=== PATIENT | male | born 1960 | race Caucasian/White ===

== ENCOUNTER 2023-06-30 09:46 | Outpatient (AMB) | payer OTHER, SELFPAY ==
--- NOTE | 2023-06-30 10:08 | AM.OFFWIN_ITS ---
Intake Vital Signs 06/30/23 10:13 Height 5 ft 9 in Weight 172 lb 4 oz BMI 25.4 BP 106/70 Blood Pressure Location Rt brachial Position Sitting Respiration 16 Pulse 92 Pulse Source Pulse Oximeter Temp 98.3 F Temp Source Oral Pulse Oximetry (%) 98 Oxygen Delivery Method Room Air Intake Visit Reasons: Headache,stomach ache Intake Note: Headache, stomach ache, loss of appetite Patient Tobacco Use Status: Never used Tobacco [employer] Office Supervisor Required: No Allergies codeine Allergy (Unknown, Verified 06/30/23 10:09) unkown Medication List - Last Reconciled 06/30/23 by Liliana Talley PA-C clonazepam mg PO clotrimazole-betamethasone 1-0.05 % appl topical lisinopril 5 mg PO DAILY metformin ER 750 mg PO BID Do you need a note to return to daycare/school/sports/work: No HPI Headache,stomach ache HPI Details Patient is a 62-year-old male with a significant past medical history of autism, hypertension, hyperlipidemia, type 2 diabetes and anxiety with depression presenting today with complaints of feeling unwell. He follows with an external pcp at [facility] with Dr. Rizzo . He states that his symptoms started about a week ago with sinus congestion, postnasal drip, decreased appetite, intermittent nausea without vomiting and some increased urinary frequency. He does state that he gets seasonal allergies and has been taking Claritin intermittently but not recently. He states that his nose gets very stuffy at night and sometimes it makes his sinuses tender but they are not currently painful. He denies any ear pain, sore throat or swollen lymph nodes. He does intermittently get generalized abdominal discomfort but nothing current or painful. It is unclear if this is something that is on and off for years or more recent but he does not think he has had it recently. He denies any flank pain, dysuria or malodorous urine. He has been trying to drink more water to be healthy. He is accompanied today with his director of casework department, Casa, who helps provide some of the hx. He is following with the [facility]. He lives independently. He has [facility]NA who comes daily to administer meds and checks bs. His glucoses have been 120-130. His glucose yesterday was 123. His director of casework department wonders if some of these symptoms are related to his neighbor moving out of the facility. He states that they had a close relationship and that this has been stressful for Yasmany. Yasmany also was recently started on Trintellix about a month ago in decreased on another psych medication which they can not recall the name of. He did not have any difficulty starting the Trintellix and did not notice any nausea around the time of starting this. The nausea has only been on and off for the last week. No weight loss. Bung Remover states that he is overdue for basic labs and unable to see PCP until the middle of next month. He states that they want to make sure that there is nothing going on with labs. They deny any known complications associated with his diabetes. No fever, chills, recent travel or known sick contacts. [facility] Medical History (Updated 06/30/23 @ 10:44 by Liliana Talley PA-C) Generalized anxiety disorder Autism HTN (hypertension), benign Uncomplicated type 2 diabetes mellitus Social History Patient Tobacco Use Status: Never used Tobacco Physical Exam Vital Signs: Last Vital Signs Temp 98.3 F 06/30/23 10:13 Pulse 92 06/30/23 10:13 Resp 16 06/30/23 10:13 BP 106/70 06/30/23 10:13 Pulse Ox 98 06/30/23 10:13 Oxygen Delivery Method Room Air 06/30/23 10:13 BMI result Body Mass Index 25.4 Const Orientation/consciousness: patient oriented x3 HEENT Ears: hearing grossly normal bilaterally and TM's normal bilaterally General nose exam: Abnormal mucous membranes and turbinates present erythematous bilateral and Nasal discharge present clear Face and sinus: Yes sinuses nontender Mouth: Normal oral and palatal mucosa present Neck Thyroid: Thyroid normal Lymphatic: no lymphadenopathy noted Resp Auscultation: clear to auscultation bilaterally Cardio Rate: regular rate Rhythm: regular rhythm Heart sounds: S1 normal heart sound present and S2 normal heart sound present GI Inspection: Yes normal to inspection Palpation (GI): Soft to palpation and Other GI palpation findings present (nontender, no cva tenderness) Auscultation: normoactive bowel sounds Rectal Exam - Male: Yes deferred General: Yes no CVA tenderness Back/Spine/Pelvis Back: no CVA tenderness Skin General skin exam: no rashes or lesions noted Neuro General: patient oriented x3, gait normal and no focal motor deficits Assessment & Plan Assessment & Plan (1) Sinus congestion: Code(s): R09.81 - Nasal congestion Plan: We will treat with Flonase and Zyrtec. Advised patient to follow up with PCP to be reassessed. I have encouraged hydration. (2) Nausea: Code(s): R11.0 - Nausea Plan: Abdominal exam today is benign. Was able to eat breakfast without difficulty. Labs ordered today including a CBC, CMP, COVID, flu in urine. We will follow up pending test results. Advised patient to follow up with PCP. (3) Urinary frequency: Code(s): R35.0 - Frequency of micturition Plan: See above. (4) Uncomplicated type 2 diabetes mellitus: Code(s): E11.9 - Type 2 diabetes mellitus without complications Qualifiers: Diabetes mellitus residential insulin use: without residential use Q ualified Code(s): E11.9 - Type 2 diabetes mellitus without complications Plan: Discussed importance of routine follow up with PCP. Reports this as being well managed. Plan Patient will follow up here sooner or the ER if anything worsens or changes. Patient understands and agrees with the plan. Orders: Orders Urine Culture Today E11.9 - Type 2 diabetes mellitus without complications, R09.81 - Nasal congestion, R11.0 - Nausea, R35.0 - Frequency of micturition AMB Urinalysis Dipstick Today E11.9 - Type 2 diabetes mellitus without complications, R09.81 - Nasal congestion, R11.0 - Nausea, R35.0 - Frequency of micturition, Z13.9 - Encounter for screening, unspecified SARS-CoV2/FLU/RSV Today E11.9 - Type 2 diabetes mellitus without complications, R09.81 - Nasal congestion, R09.89 - Other specified symptoms and signs involving the circulatory and respiratory systems, R11.0 - Nausea, R35.0 - Frequency of micturition Complete Blood Count Auto Diff Today E11.9 - Type 2 diabetes mellitus without complications, R09.81 - Nasal congestion, R11.0 - Nausea, R35.0 - Frequency of micturition Comprehensive [employer]. Panel Fast Today E11.9 - Type 2 diabetes mellitus without complications, R09.81 - Nasal congestion, R11.0 - Nausea, R35.0 - Frequency of micturition Medications: New fluticasone propionate 50 mcg/actuation (Flonase Allergy Relief) administer into each nostril 1 spray intranasal Q12H 16 grams 0RF cetirizine (Zyrtec) 10 mg PO DAILY 30 days 30 tabs 0RF Coding Level of Care Code New Pt Level 3 (40186) Diagnoses Sinus congestion R09.81 Nausea R11.0 Urinary frequency R35.0 Type 2 diabetes mellitus without complication, without long-term current use of insulin E11.9 Diabetes mellitus residential insulin use: without residential use
[2023-06-30 10:13] VITALS: BP 106/70; PULSE 92; RESP 16; TEMP 36.8; O2SAT 98; BMI 25.4
== END 2023-06-30 10:45 | disposition home or self-care (01) ==
PROVIDERS: Visit Provider Physician Assistant
DX: R09.81 Nasal congestion (principal); R11.0 Nausea; R35.0 Frequency of micturition; E11.9 Type 2 diabetes mellitus without complications
CPT/HCPCS: 81002; 99203

== ENCOUNTER 2023-06-30 10:31 | Outpatient (REF) | payer OTHER, SELFPAY | END 2023-06-30 10:32 | disposition home or self-care (01) | LOC: HO.LAB 10:31 | PROVIDERS: Visit Provider Physician Assistant | DX: Z13.89 Encounter for screening for other disorder (principal) ==

== ENCOUNTER 2023-06-30 11:11 | Outpatient (REF) | payer OTHER, SELFPAY ==
[2023-06-30 14:50] LABS: MANUAL DIFF FLAG NO
[2023-06-30 15:04] LABS: Basophils Absolute Auto 0.1 X10*3/uL (0.0-0.2); Basophils Percent Auto 0.6 % (0-2); Eosinophils Absolute Auto 0.1 X10*3/uL (0.0-0.4); Eosinophils Percent Auto 1.4 % (0-4); Hematocrit 43.2 % (42.0-52.0); Hemoglobin 14.2 g/dl (14.0-18.0); Imm Gran Abs Auto 0.03 X10*3/uL (0.00-0.03); Imm Gran Pct Auto 0.4 % (0.0-0.4); Lymphocytes Absolute Auto 2.9 X10*3/uL (1.2-4.9); Lymphocytes Percent Auto 36.2 % (20-40); Mean Corpuscular HGB Conc 32.9 g/dl (31.0-36.0); Mean Corpuscular Hemoglobin 27.8 pg (27.0-33.0); Mean Corpuscular Volume 84.5 fL (80.0-98.0); Monocytes Absolute Auto 0.9 X10*3/uL (0.1-1.2); Monocytes Percent Auto 11.7 % (2-11); Neutrophils Absolute Auto 3.9 x10*3/uL (2.0-8.3); Neutrophils Percent Auto 49.7 % (45-73); Platelet Count 310 X10*3/uL (160-400); Red Blood Count 5.11 X10*6/uL (4.60-5.80); Red Cell Distribution Width 14.9 % (11.0-16.0); White Blood Count 7.9 X10*3/uL (4.8-10.8)
[2023-06-30 15:48] LABS: Influenza A PCR NEGATIVE (Negative); Influenza B PCR NEGATIVE (Negative); Resp Syncy Virus RNA Qual PCR NEGATIVE (Negative); SARS COV2 PCR INHOUSE NEGATIVE (Negative)
[2023-06-30 15:51] LABS: Alanine Aminotransferase 39 U/L (0-40); Albumin Level 4.6 g/dL (3.5-5.0); Alkaline Phosphatase 45 U/L (39-117); Anion Gap 13 (12-20); Aspartate Amino Transferase 31 U/L (5-37); Bilirubin Total 0.5 mg/dL (0.0-1.0); Blood Urea Nitrogen 15 mg/dL (9-16); Calcium 10.2 mg/dL (8.4-10.2); Carbon Dioxide 24 mmol/L (22-29); Chloride 105 mmol/L (96-108); Estimated Glomerular Filt Rate > 60; Glucose Fasting 92 mg/dL (60-99); Sodium 138 mmol/L (135-145); Total Protein 7.6 g/dL (6.5-8.0)
== END 2023-06-30 11:12 | disposition home or self-care (01) ==
LOC: HO.WFDLDS 11:11
PROVIDERS: Visit Provider Physician Assistant
DX: R09.81 Nasal congestion (principal); R11.0 Nausea; R35.0 Frequency of micturition; E11.9 Type 2 diabetes mellitus without complications; R09.89 Other specified symptoms and signs involving the circulatory and respiratory systems
CPT/HCPCS: 0241U; 36415; 80053; 85025; 87086